=== PATIENT | female | born 1990 | race Two or more races ===

== ENCOUNTER 2019-06-29 13:53 | Outpatient (CLI) | payer OTHER | END 2019-06-29 13:59 | disposition home or self-care (01) | LOC: LAB 13:53 | DX: J11.1 Influenza due to unidentified influenza virus with other respiratory manifestations (principal) ==

== ENCOUNTER 2019-11-30 14:41 | Outpatient (CLI) | payer OTHER | END 2019-11-30 14:44 | disposition home or self-care (01) | LOC: CERTIFICAD 14:41 | PROVIDERS: ATTEND Family Medicine | DX: Z11.1 Encounter for screening for respiratory tuberculosis (principal) ==

== ENCOUNTER → 2020-03-30 | Outpatient (CLI) | payer OTHER | END | disposition home or self-care (01) | LOC: PPH VACUNA 14:15 | DX: Z23 Encounter for immunization (principal) ==

== ENCOUNTER 2020-11-30 14:13 | Outpatient (CLI) | payer OTHER | END 2020-11-30 15:00 | disposition home or self-care (01) | LOC: LAB 14:13 | PROVIDERS: ATTEND Emergency Medicine Pediatric Emergency Medicine | DX: Z20.828 Contact with and (suspected) exposure to other viral communicable diseases (principal) ==